=== PATIENT | female | born 1995 | race Caucasian/White ===

== ENCOUNTER → 2017-04-12 | Outpatient (CLI) | payer BC ==
[~2017-04-12] MED LIST: ZYRUNK
== END | disposition home or self-care (01) ==
LOC: C.PAPS 10:02
PROVIDERS: ATTEND Obstetrics & Gynecology
DX: Z01.419 Encounter for gynecological examination (general) (routine) without abnormal findings (principal)

== ENCOUNTER 2022-11-13 14:19 | Inpatient (IN) ==
--- NOTE | 2022-11-13 14:40 | History & Physical Report ---
Date of Service November 13, 2022 Assessment & Plan (1) Elevated BP without diagnosis of hypertension: Plan: Will order preeclampsia labs serial blood pressures likely will need induction will await labs and further blood pressures (2) Preeclampsia complicating hypertension: Plan: Update her labs to come back and these are normal however her systolic range pressures have been in the 180 range there was 1 reading of 215 but this likely was due to inaccurate reading. Nifedipine 10 mg given initially blood pressure 20 minutes afterwards was still 181/95 the second dose of nifedipine 10 mg p.o. given orally With meeting criteria with blood pressure decision for induction was made we will start magnesium is meets criteria for severe with blood pressures cervix is assessed is 1 cm 50% cervical [place] then placed under sterile conditions using a speculum placed with 30 cc of sterile saline patient tolerated well magnesium will be started blood pressure control with nifedipine and Pitocin started all carefully reviewed with the patient History of Present Illness Primary Care Provider: Francis Prieto DO RAMA Calculator Estimated Delivery Date Method Current WG Current Estimate 11/21/22 LMP (Certain) 38w 6d LMP: 02/14/22 : 1 Full term: 0 Premature: 0 Total Number of Induced Abortions: 0 Total Number of Spontaneous Abortions: 0 Ectopics: 0 Multiple births: 0 Number of Living Children: 0 Patient sent from the office with elevated blood pressures and protein in the urine here for assessment No headache no visual disturbances no epigastric pain she actually feels fairly well Allergies Allergy/AdvReac Type Severity Reaction Status Date / Time peanut Allergy Mild Verified 11/13/22 13:35 tree nut Allergy Verified 11/13/22 13:35 No Known Drug Allergies Allergy Uncoded 11/13/22 13:35 Home Medications Medication Instructions Recorded Confirmed Type cetirizine 10 mg tablet PO 06/17/19 11/13/22 History prenat.vits,swapna,wmu-jobk-jawek 1 tab PO DAILY 04/04/22 11/13/22 History Patient History Medical History (Updated 11/13/22 @ 15:49 by Chema Baldwin MD, FACOG) Eczema History of chicken pox HPV test positive Seasonal allergies Surgical History H/O oral surgery Status post colposcopy Family History Mother Hypertension Denies family history of Ovarian cancer Breast cancer Colorectal cancer Social History (Updated 04/04/22 @ 13:05 by Joan Weaver) Smoking Status: Never smoker Hx Alcohol Use: No Hx Substance Use: No Preferred Language: Mongolian Communication Ability: Effective Branch General Manager Required: No Beliefs That Will Affect Care: None marital status: marital status details: Rashi Aldridge (29) [phone] Current Living Situation: Spouse Current Living Situation Comment: lives with spouse, dogs current occupational status: employed current occupation: [employer] for [employer] Other Information That Helps Us Care for You: No Feels Safe at Home: Yes Safety Concerns: Feels Safe At This Time Results & Data ([facility]) Vital Signs (Past 12 Hours) Vital Signs Pulse BP 11/13/22 14:37 71 161/95 H Coding Level of Care Code None Diagnoses Elevated BP without diagnosis of hypertension R03.0 Preeclampsia complicating hypertension O11.9
[2022-11-13 15:13] LABS: Basophils # (auto) 0.08 K/uL (0-0.2); Basophils % (auto) 0.8 %; Eosinophils # (auto) 0.25 K/uL (0-0.50); Eosinophils % (auto) 2.6 %; Hematocrit (blood only) 31.4 % (37.0-47.0); Hemoglobin 10.3 g/dl (12.0-16.0); Immature Granulocytes # (auto) 0.03 K/uL (0.01-0.20); Immature Granulocytes % (auto) 0.3 %; Lymphocytes # (auto) 3.58 K/uL (1.2-3.4); Lymphocytes % (auto) 37.9 %; Mean Corpuscular Hemoglobin 28.2 pg (25.0-34.0); Mean Corpuscular Hgb Conc 32.8 g/dL (32.0-36.0); Mean Platelet Volume 11.8 fL (9.4-12.4); Monocytes # (auto) 0.57 K/uL (0.11-0.59); Neutrophils # (auto) 4.93 K/uL (1.40-6.50); Neutrophils % (auto) 52.4 %; Platelet Count 247 K/uL (130-400); RDW Coefficient of Variation 14.7 % (11.5-14.5); RDW Standard Deviation 46.1 fL (36.4-46.3); Red Blood Count 3.65 M/uL (4.20-5.40); White Blood Count 9.44 K/ul (4.8-10.8)
[2022-11-13] MEDS ORDERED: LIDOCAINE 1% LOCAL 20 ML VIAL INFIL PRN (15:16)
[2022-11-13] MEDS ORDERED: OXYTOCIN 30 UNITS/500 ML BAG IV PRN ×2 (15:16→16:03)
[2022-11-13] MEDS ORDERED: NIFEdipine 10 MG CAP PO STA ×5 (15:18→19:37)
[2022-11-13] MEDS ORDERED: NIFEdipine 10 MG CAP ONE (15:19)
[2022-11-13] MEDS: LACTATED RINGER'S 1,000 ML IV PRN (15:24)
[2022-11-13 15:28] LABS: Albumin Level 3.2 gm/dl (3.4-5.0); Bilirubin,Total 0.3 mg/dl (0.2-1.0)
[2022-11-13 15:34] LABS: Creatinine Clr Calc Pharmacy 134.5 ml/min; Est GFR (African American) 146.2 ml/min; Est GFR (Non-African American) 126.2 ml/min; Total Protein 6.4 gm/dl (6.0-8.3)
[2022-11-13 15:39] LABS: Total Protein Urine Random 130.5 mg/dl (0-11.9)
[2022-11-13 15:45] LABS: Creatinine Urine Random 107.3 mg/dl; Protein Creatinine Ratio Urine 1.2 (0-0.2)
[2022-11-13] MEDS ORDERED: MAGNESIUM SULFATE 40GM / WTR 1,000 ML BAG IV ONE (15:57)
[2022-11-13] MEDS ORDERED: MAG SULFATE 4GM BOLUS FROM BAG IV ONE (16:00)
[2022-11-13] MEDS: MAGNESIUM SULFATE / WTR 40 GM/1,000 ML BAG IV SCH (16:02)
[2022-11-13] MEDS ORDERED: PENICILLIN G POTASSIUM 6 MU in DEXTROSE 5% 250 ML IV STA (16:03)
[2022-11-13] MEDS ORDERED: ONDANSETRON INJ 2 MG/ML 2 ML VIAL IV PRN (18:19)
[2022-11-13] MEDS ORDERED: ACETAMINOPHEN 650 MG SUPP PR PRN (18:33)
[2022-11-13] MEDS: CALCIUM CARBONATE 500 MG CHEWABLE TAB PO PRN (19:02)
--- NOTE | 2022-11-13 19:38 | Labor Progress Brief Note ---
Date of Service November 13, 2022 Still struggling to control blood pressure have given nifedipine and doses of 10 then 10 and 20 and will repeat with 10 diastolics are reasonable but systolics in the 170s she had a headache but this seems to be improving monitoring closely Assessment & Plan Admission and Anticipated Discharge Date Admission Date: November 13, 2022 Results & Data ([facility]) Vital Signs (Past 12 Hours) Vital Signs Temp Pulse Resp BP Pulse Ox 11/13/22 18:00 20 11/13/22 17:00 22 11/13/22 16:00 22 11/13/22 15:30 97.5 F L 11/13/22 15:06 22 11/13/22 19:35 96 H 176/89 H 11/13/22 19:34 92 H 98 11/13/22 19:30 88 177/88 H 11/13/22 19:29 91 H 99 11/13/22 19:24 93 H 98 11/13/22 19:20 88 175/85 H 11/13/22 19:19 87 98 11/13/22 19:14 96 H 99 11/13/22 19:10 85 182/92 H 11/13/22 19:09 90 98 11/13/22 19:00 18 11/13/22 19:00 98.6 F 18 11/13/22 19:04 100 H 99 11/13/22 19:00 81 20 178/100 H 11/13/22 18:59 89 99 11/13/22 18:54 85 99 11/13/22 18:45 18 11/13/22 18:45 18 11/13/22 18:50 81 180/97 H 11/13/22 18:15 18 11/13/22 18:15 18 11/13/22 17:15 20 11/13/22 17:15 20 11/13/22 17:45 18 11/13/22 17:45 18 11/13/22 18:49 83 99 11/13/22 18:44 84 100 11/13/22 18:40 83 176/98 H 11/13/22 18:39 86 99 11/13/22 18:37 84 171/106 H 11/13/22 18:34 90 100 11/13/22 18:29 95 H 100 11/13/22 18:24 91 H 100 11/13/22 18:23 85 167/96 H 11/13/22 18:19 87 99 11/13/22 18:14 95 H 98 11/13/22 18:09 116 H 97 11/13/22 18:04 94 H 99 11/13/22 17:59 85 99 11/13/22 17:54 83 99 11/13/22 17:52 83 171/92 H 11/13/22 17:49 83 99 11/13/22 17:44 88 100 11/13/22 17:39 89 99 11/13/22 17:38 82 174/91 H 11/13/22 17:34 93 H 99 11/13/22 17:29 87 161/95 H 99 11/13/22 17:24 113 H 98 11/13/22 17:23 106 H 173/104 H 11/13/22 17:19 96 H 99 11/13/22 17:18 100 H 171/90 H 11/13/22 16:52 98 H 98 11/13/22 16:47 90 97 11/13/22 16:42 91 H 98 11/13/22 16:37 97 H 97 11/13/22 16:36 97 H 155/94 H 11/13/22 16:32 101 H 97 11/13/22 16:27 98 H 97 11/13/22 16:26 97 H 153/93 H 11/13/22 16:22 99 H 97 11/13/22 16:20 109 H 143/82 H 11/13/22 16:17 111 H 98 11/13/22 16:15 92 H 162/83 H 11/13/22 16:14 96 H 175/92 H 11/13/22 16:12 94 H 97 11/13/22 16:07 122 H 98 11/13/22 16:04 86 161/95 H 11/13/22 15:59 90 159/97 H 11/13/22 15:53 77 167/94 H 11/13/22 15:43 72 181/95 H 11/13/22 15:33 71 187/93 H 11/13/22 15:23 76 185/99 H 11/13/22 15:11 78 182/103 H 11/13/22 15:10 83 215/114 H 11/13/22 14:47 90 181/108 H 11/13/22 14:37 71 161/95 H Coding Level of Care Code None
[2022-11-13] MEDS ORDERED: LABETALOL HCL IV 5 MG/ML 20ML IV STA ×3 (21:23→23:33)
[2022-11-13] MEDS ORDERED: LABETALOL HCL IV 5 MG/ML 20ML IV ONE (21:25)
[2022-11-13] MEDS: PENICILLIN G POTASSIUM 3 MU in DEXTROSE 5% 100 ML IV PRN (23:14)
[2022-11-14] MEDS: CALCIUM CARBONATE 500 MG CHEWABLE TAB PO PRN (02:02)
[2022-11-14] MEDS: PENICILLIN G POTASSIUM 3 MU in DEXTROSE 5% 100 ML IV PRN ×3 (03:01→10:53)
[2022-11-14] MEDS: LACTATED RINGER'S 1,000 ML IV PRN ×3 (05:00→14:01)
--- NOTE | 2022-11-14 07:06 | Labor Progress Brief Note ---
Date of Service November 14, 2022 Still struggling to obtain ideal blood pressure ranges despite nifedipine and labetalol I do think some of the nifedipine was not actually ingested as she had emesis at those times better response to labetalol but still watching carefully she has no significant headache Her contraction pattern is not adequate at 20 milliunits Pitocin's will increase to 32 cervical [place] is pulled out she is 4 cm I offered her rupture of membranes she is debating that at this time and she is considering epidural as well she will let me know if she is amenable to her artificial rupture of membranes heart rate category 1 Assessment & Plan Admission and Anticipated Discharge Date Admission Date: November 13, 2022 Results & Data ([facility]) Vital Signs (Past 12 Hours) Vital Signs Temp Pulse Resp BP Pulse Ox 11/14/22 03:00 16 11/14/22 06:59 84 98 11/14/22 06:56 78 165/95 H 11/14/22 06:54 87 98 11/14/22 06:49 90 98 11/14/22 06:46 83 162/92 H 11/14/22 06:44 86 98 11/14/22 06:39 92 H 98 11/14/22 06:37 91 H 169/99 H 11/14/22 06:34 76 98 11/14/22 06:29 74 98 11/14/22 06:26 75 159/91 H 11/14/22 06:24 79 178/90 H 98 11/14/22 06:19 83 98 11/14/22 06:14 74 98 11/14/22 06:09 81 98 11/14/22 06:08 78 170/93 H 11/14/22 06:00 18 11/14/22 06:00 18 11/14/22 06:04 87 97 11/14/22 05:59 90 98 11/14/22 05:54 83 98 11/14/22 05:53 82 145/82 H 11/14/22 05:49 74 98 11/14/22 05:44 73 98 11/14/22 05:39 75 98 11/14/22 05:37 75 148/84 H 11/14/22 05:34 73 98 11/14/22 05:29 75 98 11/14/22 05:28 76 144/84 H 11/14/22 05:24 74 98 11/14/22 05:19 73 98 11/14/22 05:17 76 148/77 H 11/14/22 05:14 75 98 11/14/22 05:09 78 98 11/14/22 05:07 83 155/81 H 11/14/22 05:04 78 98 11/14/22 05:00 16 11/14/22 05:00 16 11/14/22 04:59 73 98 11/14/22 04:58 80 152/83 H 11/14/22 04:54 82 98 11/14/22 04:49 74 98 11/14/22 04:48 77 144/78 H 11/14/22 04:44 74 98 11/14/22 04:39 75 98 11/14/22 04:38 76 142/78 H 11/14/22 04:34 77 98 11/14/22 04:29 73 98 11/14/22 04:27 76 144/79 H 11/14/22 04:24 73 98 11/14/22 04:19 76 98 11/14/22 04:17 79 153/84 H 11/14/22 04:14 80 99 11/14/22 04:00 16 11/14/22 04:00 97.7 F 16 11/14/22 04:09 86 98 11/14/22 04:07 85 155/90 H 11/14/22 04:04 91 H 99 11/14/22 03:59 78 98 11/14/22 03:57 78 145/85 H 11/14/22 03:54 84 98 11/14/22 03:49 91 H 98 11/14/22 03:47 84 152/86 H 11/14/22 03:44 82 98 11/14/22 03:39 82 98 11/14/22 03:37 83 144/77 H 11/14/22 03:34 82 98 11/14/22 03:29 80 98 11/14/22 03:27 80 151/78 H 11/14/22 03:24 79 98 11/14/22 03:19 82 98 11/14/22 03:18 82 147/81 H 11/14/22 03:14 82 98 11/14/22 03:09 77 97 11/14/22 03:07 82 137/72 11/14/22 03:04 83 98 11/14/22 02:59 88 97 11/14/22 02:57 80 153/89 H 11/14/22 02:54 85 98 11/14/22 02:49 75 98 11/14/22 02:47 81 150/83 H 11/14/22 02:44 75 97 11/14/22 02:39 89 98 11/14/22 02:37 77 147/76 H 11/14/22 02:34 79 97 11/14/22 02:29 77 97 11/14/22 02:27 76 143/78 H 11/14/22 02:24 78 98 11/14/22 02:19 79 98 11/14/22 02:18 76 148/80 H 11/14/22 02:14 83 98 11/14/22 02:09 81 98 11/14/22 02:07 77 142/81 H 11/14/22 02:00 18 11/14/22 02:00 18 11/14/22 02:04 84 98 11/14/22 01:59 81 98 11/14/22 01:57 82 154/86 H 11/14/22 01:54 76 98 11/14/22 01:49 84 98 11/14/22 01:48 75 151/83 H 11/14/22 01:44 78 98 11/14/22 01:39 77 98 11/14/22 01:37 75 149/82 H 11/14/22 01:34 82 98 11/14/22 01:29 76 98 11/14/22 01:28 77 153/83 H 11/14/22 01:24 76 98 11/14/22 01:19 75 98 11/14/22 01:17 74 156/82 H 11/14/22 01:14 77 99 11/14/22 01:09 81 98 11/14/22 01:00 18 11/14/22 01:00 18 11/14/22 01:08 79 148/83 H 11/14/22 01:04 83 98 11/14/22 00:59 82 98 11/14/22 00:54 81 02 00:54 71 156/97 H 98 11/14/22 00:49 71 11/14/22 00:49 73 150/97 H 98 11/14/22 00:44 71 11/14/22 00:44 73 150/96 H 98 11/14/22 00:40 76 166/90 H 11/14/22 00:39 70 98 11/14/22 00:34 72 11/14/22 00:34 70 160/97 H 98 11/14/22 00:29 73 11/14/22 00:29 73 150/93 H 98 11/14/22 00:25 76 162/90 H 11/14/22 00:24 79 98 11/14/22 00:20 74 163/94 H 11/14/22 00:19 75 97 11/14/22 00:14 69 11/14/22 00:14 72 147/96 H 98 11/14/22 00:09 76 159/102 H 98 11/14/22 00:04 82 154/101 H 98 11/14/22 00:00 18 11/14/22 00:00 18 11/13/22 23:59 80 11/13/22 23:59 82 158/93 H 98 11/13/22 23:54 88 11/13/22 23:54 80 159/86 H 96 11/13/22 23:49 75 11/13/22 23:49 82 158/89 H 98 11/13/22 23:45 80 173/95 H 11/13/22 23:44 75 98 11/13/22 23:41 76 164/95 H 11/13/22 23:39 72 97 11/13/22 23:35 70 181/98 H 11/13/22 23:34 77 97 11/13/22 23:31 71 169/100 H 11/13/22 23:29 72 97 11/13/22 23:25 73 159/98 H 11/13/22 23:24 74 98 11/13/22 23:19 71 11/13/22 23:19 78 160/97 H 98 11/13/22 23:15 82 165/97 H 11/13/22 23:14 72 98 11/13/22 23:09 74 11/13/22 23:09 78 158/105 H 97 11/13/22 23:00 18 11/13/22 23:00 97.9 F 18 11/13/22 23:04 75 151/102 H 97 11/13/22 22:59 65 149/101 H 97 11/13/22 22:54 72 147/100 H 97 11/13/22 22:49 67 11/13/22 22:49 71 146/102 H 96 11/13/22 22:44 78 11/13/22 22:44 72 157/99 H 96 11/13/22 22:42 75 161/104 H 11/13/22 22:39 76 97 11/13/22 22:34 74 97 11/13/22 22:33 71 166/105 H 11/13/22 22:29 74 98 11/13/22 22:24 68 164/93 H 98 11/13/22 22:19 78 97 11/13/22 22:14 73 98 11/13/22 22:09 82 98 11/13/22 22:08 69 155/98 H 11/13/22 22:00 18 11/13/22 22:00 18 11/13/22 22:04 76 98 11/13/22 22:03 71 158/98 H 11/13/22 21:59 73 97 11/13/22 21:58 69 162/99 H 11/13/22 21:54 77 98 11/13/22 21:53 75 157/96 H 11/13/22 21:49 76 159/95 H 98 11/13/22 21:44 82 162/93 H 98 11/13/22 21:39 83 144/111 H 95 11/13/22 21:34 83 98 11/13/22 21:33 77 147/91 H 11/13/22 21:30 85 173/101 H 11/13/22 21:29 89 99 11/13/22 21:24 94 H 99 11/13/22 21:20 81 184/97 H 11/13/22 21:19 87 98 11/13/22 21:14 96 H 98 11/13/22 21:10 95 H 163/97 H 11/13/22 21:09 100 H 98 11/13/22 21:04 127 H 96 11/13/22 21:00 96 H 169/99 H 11/13/22 20:59 102 H 98 11/13/22 20:54 93 H 98 11/13/22 20:50 82 156/89 H 11/13/22 20:49 88 97 11/13/22 20:44 87 98 11/13/22 20:40 85 168/91 H 11/13/22 20:39 89 98 11/13/22 20:34 87 98 11/13/22 20:31 85 166/89 H 11/13/22 20:29 89 98 11/13/22 20:24 97 H 98 11/13/22 20:20 86 155/91 H 11/13/22 20:19 83 98 11/13/22 20:14 88 97 11/13/22 20:10 93 H 163/90 H 11/13/22 20:09 92 H 98 11/13/22 20:04 91 H 98 11/13/22 20:00 92 H 18 160/90 H 11/13/22 19:59 95 H 98 11/13/22 19:54 101 H 98 11/13/22 19:50 103 H 171/88 H 11/13/22 19:49 109 H 99 11/13/22 19:44 106 H 97 11/13/22 19:41 130 H 175/118 H 11/13/22 19:39 107 H 98 11/13/22 19:35 96 H 176/89 H 11/13/22 19:34 92 H 98 11/13/22 19:30 88 177/88 H 11/13/22 19:29 91 H 99 11/13/22 19:24 93 H 98 11/13/22 19:20 88 175/85 H 11/13/22 19:19 87 98 11/13/22 19:14 96 H 99 11/13/22 19:10 85 182/92 H 11/13/22 19:09 90 98 Coding Level of Care Code None
[2022-11-14] MEDS ORDERED: ePHEDrine sulfate 50 MG/ML AMP ONE (07:50)
[2022-11-14] MEDS ORDERED: fentaNYL citrate 100 MCG/2 ML VIAL ONE (07:50)
[2022-11-14] MEDS ORDERED: fentaNYL 2MCG/ML ROPIVACAINE 1.25MG/ML 100 ML BAG EPI ONE (07:51)
[2022-11-14] MEDS ORDERED: LIDOCAINE 2%/EPINEPHRINE 1:200,000 20 ML SDV ONE (07:51)
[2022-11-14] MEDS ORDERED: BUPIVACAINE 0.25% 30 ML VIAL ONE (07:51)
[2022-11-14] MEDS ORDERED: SODIUM CHLORIDE 0.9% INJ 10 ML VIAL ONE (07:51)
[2022-11-14 08:00] LABS: Hematocrit (blood only) 33.3 % (37.0-47.0); Hemoglobin 11.1 g/dl (12.0-16.0); Mean Corpuscular Hemoglobin 28.4 pg (25.0-34.0); Mean Corpuscular Hgb Conc 33.3 g/dL (32.0-36.0); Mean Corpuscular Volume 85.2 fL (80.0-100.0); Mean Platelet Volume 11.6 fL (9.4-12.4); Platelet Count 269 K/uL (130-400); RDW Coefficient of Variation 14.6 % (11.5-14.5); RDW Standard Deviation 44.5 fL (36.4-46.3); Red Blood Count 3.91 M/uL (4.20-5.40); White Blood Count 13.88 K/ul (4.8-10.8)
[2022-11-14 08:10] LABS: Albumin Level 3.3 gm/dl (3.4-5.0); Bilirubin,Total 0.3 mg/dl (0.2-1.0); Calcium 7.5 mg/dl (8.5-10.1); Creatinine Clr Calc Pharmacy 127.7 ml/min; Est GFR (African American) 143.8 ml/min; Globulin 3.3 gm/dl (2.5-4.0); Potassium 4.1 mmol/L (3.5-5.1); Total Protein 6.6 gm/dl (6.0-8.3)
[2022-11-14] MEDS ORDERED: LABETALOL HCL IV 5 MG/ML 20ML IV STA ×3 (08:10→14:14)
[2022-11-14] MEDS: MAGNESIUM SULFATE / WTR 40 GM/1,000 ML BAG IV SCH (08:32)
--- NOTE | 2022-11-14 09:32 | Anesthesiology Consultation ---
Date of Service November 14, 2022 Assessment & Plan Chart Review Chart Review: Acceptable Risk for Labor Epidural Consults Requested none History Height/Weight Height: 5 ft Weight: 76.657 kg Allergies Allergy/AdvReac Type Severity Reaction Status Date / Time peanut Allergy Mild Verified 11/13/22 13:35 tree nut Allergy Verified 11/13/22 13:35 No Known Drug Allergies Allergy Uncoded 11/13/22 13:35 Medications Home Medications Medication Instructions Recorded Confirmed Last Taken cetirizine 10 mg tablet PO 06/17/19 11/13/22 11/13/22 prenat.vits,swapna,lyw-obij-svvqs 1 tab PO DAILY 04/04/22 11/13/22 11/12/22 Active Medications Generic Name Dose Route Start Last Admin Trade Name Freq PRN Reason Stop Dose Admin Acetaminophen 650 mg 11/13/22 18:33 11/14/22 01:01 Acetaminophen 650 Mg Supp RI 12/13/22 18:32 650 mg Q4H PRN Administration Headache Calcium Carbonate 500 mg 11/13/22 18:19 11/14/22 02:02 Calcium Carbonate 500 Mg Chewable Tab PO 12/13/22 18:18 500 mg Q4 PRN Administration Indigestion Lactated Ringer's 1,000 mls @ 125 mls/hr 11/13/22 15:16 11/14/22 09:31 Lr IV 11/15/22 15:15 75 mls/hr .Q8H PRN Infusion L&D Protocol Protocol Magnesium Sulfate 40 gm in 1,000 mls @ 50 mls/hr 11/13/22 16:00 11/14/22 08:32 Magnesium Sulfate / Wtr IV 12/13/22 15:59 50 mls/hr .Q20H LAAN Administration Penicillin G Potassium 3 mu/ 106 mls @ 100 mls/hr 11/13/22 19:03 11/14/22 07:18 Dextrose IV 11/23/22 19:02 100 mls/hr Q4H PRN Administration GBS(+) Until Delivery Oxytocin 30 units in 500 mls @ 28 mls/hr 11/13/22 16:03 11/14/22 09:30 Pitocin IV 11/15/22 16:02 1.8 units/hr .[id number] PRN 30 mls/hr Labor Induction/Augmentation Titration Protocol 1.68 UNITS/HR Ondansetron HCl 4 mg 11/13/22 18:19 11/13/22 19:46 Ondansetron Inj 2 Mg/Ml 2 Ml Vial IV 12/13/22 18:18 4 mg Q6H PRN Administration Nausea And Vomiting Past Medical History Medical History (Updated 11/13/22 @ 15:49 by Chema Baldwin MD, FACOG) Eczema History of chicken pox HPV test positive Seasonal allergies Past Family History Family History Mother Hypertension Denies family history of Ovarian cancer Breast cancer Colorectal cancer Past Surgical History Surgical History H/O oral surgery Status post colposcopy Social History Smoking Status: Never smoker Hx Alcohol Use: No Hx Substance Use: No substance use type: does not use Physical Exam Vital Signs Last Vital Signs Temp 36.5 C 11/14/22 07:00 Pulse 80 11/14/22 09:30 Resp 18 11/14/22 08:30 BP 136/82 11/14/22 09:30 Pulse Ox 99 11/14/22 09:29 Testing Laboratory Results 11/14/22 07:34 11/14/22 07:34
[2022-11-14] MEDS ORDERED: ePHEDrine sulfate 50 MG/ML AMP IV PRN (09:34)
[2022-11-14] MEDS ORDERED: NALOXONE HCL 0.4 MG/1 ML VIAL/CARP IV PRN (09:34)
[2022-11-14] MEDS ORDERED: NALBUPHINE HCL INJ 10 MG/ML AMP IV PRN (09:34)
[2022-11-14] MEDS ORDERED: NALOXONE HCL 1 MG in SODIUM CHLORIDE 0.9% 1000ML 1,000 ML IV PRN (09:34)
[2022-11-14] MEDS ORDERED: diphenhydrAMINE 50 MG/ML VIAL IV PRN (09:34)
[2022-11-14] MEDS ORDERED: fentaNYL 2MCG/ML ROPIVACAINE 1.25MG/ML 100 ML BAG EPI PRN (09:34)
--- NOTE | 2022-11-14 12:00 | Labor Progress Brief Note ---
Date of Service November 14, 2022 Subjective Comfortable after epidural. FHT Cat 1 [place] Q 4 SVE 6/100/-1, bulging membranes AROM clear fluid. BPs better after epidural. Continue labor. Assessment & Plan Admission and Anticipated Discharge Date Admission Date: November 13, 2022 Results & Data ([facility]) Vital Signs (Past 12 Hours) Vital Signs Temp Pulse Resp BP Pulse Ox 11/14/22 07:00 36.5 C 18 11/14/22 07:00 18 11/14/22 03:00 16 11/14/22 11:59 75 11/14/22 11:54 83 98 11/14/22 11:53 85 143/86 H 11/14/22 11:49 72 98 11/14/22 11:44 66 98 11/14/22 11:43 68 155/76 H 11/14/22 11:39 70 98 11/14/22 11:34 69 98 11/14/22 11:30 16 11/14/22 11:30 16 11/14/22 11:33 67 146/82 H 11/14/22 11:29 70 97 11/14/22 11:24 69 98 11/14/22 11:23 67 140/83 11/14/22 11:19 69 98 11/14/22 11:14 67 97 11/14/22 11:13 72 145/78 H 11/14/22 11:09 67 97 11/14/22 11:04 69 97 11/14/22 11:03 65 134/78 11/14/22 11:00 16 11/14/22 11:00 16 11/14/22 10:59 69 97 11/14/22 10:54 72 97 11/14/22 10:52 78 135/82 11/14/22 10:49 70 98 11/14/22 10:44 69 98 11/14/22 10:42 70 134/82 11/14/22 10:39 67 97 11/14/22 10:34 69 97 11/14/22 10:33 69 137/83 11/14/22 10:30 16 11/14/22 10:30 16 11/14/22 10:29 75 98 11/14/22 10:24 75 98 11/14/22 10:22 74 135/80 11/14/22 10:19 71 98 11/14/22 10:17 68 125/78 11/14/22 10:00 16 11/14/22 10:00 16 11/14/22 10:14 72 98 11/14/22 10:12 74 125/76 11/14/22 10:09 73 97 11/14/22 10:07 76 127/77 11/14/22 10:04 75 98 11/14/22 10:02 80 123/79 11/14/22 09:59 83 97 11/14/22 09:58 85 127/82 11/14/22 09:54 83 96 11/14/22 09:52 87 129/79 11/14/22 09:49 82 96 11/14/22 09:47 75 124/74 11/14/22 09:44 80 96 11/14/22 09:42 83 122/72 11/14/22 09:40 80 127/76 11/14/22 09:39 79 97 11/14/22 09:38 85 134/81 11/14/22 09:36 87 132/83 11/14/22 09:34 90 11/14/22 09:34 88 141/89 H 98 11/14/22 09:32 87 139/82 11/14/22 09:30 80 16 136/82 11/14/22 09:29 86 99 11/14/22 09:26 80 142/80 H 11/14/22 09:24 80 148/80 H 99 11/14/22 09:20 80 163/97 H 11/14/22 09:19 78 97 11/14/22 09:18 83 157/89 H 11/14/22 09:16 82 158/95 H 11/14/22 09:14 85 98 11/14/22 09:09 88 98 11/14/22 09:06 86 172/102 H 11/14/22 09:04 76 98 11/14/22 08:59 75 98 11/14/22 08:56 75 165/98 H 11/14/22 08:54 75 98 11/14/22 08:49 82 98 11/14/22 08:46 75 162/92 H 11/14/22 08:44 73 98 11/14/22 08:39 80 97 11/14/22 08:30 18 11/14/22 08:30 18 11/14/22 08:36 74 167/90 H 11/14/22 08:34 76 97 11/14/22 08:29 78 97 11/14/22 08:27 79 154/84 H 11/14/22 08:24 86 98 11/14/22 08:19 90 99 11/14/22 08:17 80 195/103 H 11/14/22 08:14 84 98 11/14/22 08:09 83 98 11/14/22 08:06 80 176/98 H 11/14/22 08:00 18 11/14/22 08:00 18 11/14/22 08:04 87 98 11/14/22 07:59 85 98 11/14/22 07:56 75 169/92 H 11/14/22 07:54 82 98 11/14/22 07:49 83 98 11/14/22 07:46 83 186/100 H 11/14/22 07:44 88 98 11/14/22 07:39 83 98 11/14/22 07:34 76 98 11/14/22 07:30 18 11/14/22 07:30 18 11/14/22 07:29 82 98 11/14/22 07:26 76 162/96 H 11/14/22 07:24 77 98 11/14/22 07:19 84 98 11/14/22 07:16 86 160/94 H 11/14/22 07:14 88 97 11/14/22 07:12 80 161/97 H 11/14/22 07:09 87 97 11/14/22 07:06 88 171/100 H 11/14/22 07:04 83 98 11/14/22 06:59 84 98 11/14/22 06:56 78 165/95 H 11/14/22 06:54 87 98 11/14/22 06:49 90 98 11/14/22 06:46 83 162/92 H 11/14/22 06:44 86 98 11/14/22 06:39 92 H 98 11/14/22 06:37 91 H 169/99 H 11/14/22 06:34 76 98 11/14/22 06:29 74 98 11/14/22 06:26 75 159/91 H 11/14/22 06:24 79 178/90 H 98 11/14/22 06:19 83 98 02/01/23 06:14 74 98 11/14/22 06:09 81 98 11/14/22 06:08 78 170/93 H 11/14/22 06:00 18 11/14/22 06:00 18 11/14/22 06:04 87 97 11/14/22 05:59 90 98 11/14/22 05:54 83 98 11/14/22 05:53 82 145/82 H 11/14/22 05:49 74 98 11/14/22 05:44 73 98 11/14/22 05:39 75 98 11/14/22 05:37 75 148/84 H 11/14/22 05:34 73 98 11/14/22 05:29 75 98 11/14/22 05:28 76 144/84 H 11/14/22 05:24 74 98 11/14/22 05:19 73 98 11/14/22 05:17 76 148/77 H 11/14/22 05:14 75 98 11/14/22 05:09 78 98 11/14/22 05:07 83 155/81 H 11/14/22 05:04 78 98 11/14/22 05:00 16 11/14/22 05:00 16 11/14/22 04:59 73 98 11/14/22 04:58 80 152/83 H 11/14/22 04:54 82 98 11/14/22 04:49 74 98 11/14/22 04:48 77 144/78 H 11/14/22 04:44 74 98 11/14/22 04:39 75 98 11/14/22 04:38 76 142/78 H 11/14/22 04:34 77 98 11/14/22 04:29 73 98 11/14/22 04:27 76 144/79 H 11/14/22 04:24 73 98 11/14/22 04:19 76 98 11/14/22 04:17 79 153/84 H 11/14/22 04:14 80 99 11/14/22 04:00 16 11/14/22 04:00 36.5 C 16 11/14/22 04:09 86 98 11/14/22 04:07 85 155/90 H 11/14/22 04:04 91 H 99 11/14/22 03:59 78 98 11/14/22 03:57 78 145/85 H 11/14/22 03:54 84 98 11/14/22 03:49 91 H 98 11/14/22 03:47 84 152/86 H 11/14/22 03:44 82 98 11/14/22 03:39 82 98 11/14/22 03:37 83 144/77 H 11/14/22 03:34 82 98 11/14/22 03:29 80 98 11/14/22 03:27 80 151/78 H 11/14/22 03:24 79 98 11/14/22 03:19 82 98 11/14/22 03:18 82 147/81 H 11/14/22 03:14 82 98 11/14/22 03:09 77 97 11/14/22 03:07 82 137/72 11/14/22 03:04 83 98 11/14/22 02:59 88 97 11/14/22 02:57 80 153/89 H 11/14/22 02:54 85 98 11/14/22 02:49 75 98 11/14/22 02:47 81 150/83 H 11/14/22 02:44 75 97 11/14/22 02:39 89 98 11/14/22 02:37 77 147/76 H 11/14/22 02:34 79 97 11/14/22 02:29 77 97 11/14/22 02:27 76 143/78 H 11/14/22 02:24 78 98 11/14/22 02:19 79 98 11/14/22 02:18 76 148/80 H 11/14/22 02:14 83 98 11/14/22 02:09 81 98 11/14/22 02:07 77 142/81 H 11/14/22 02:00 18 11/14/22 02:00 18 11/14/22 02:04 84 98 11/14/22 01:59 81 98 11/14/22 01:57 82 154/86 H 11/14/22 01:54 76 98 11/14/22 01:49 84 98 11/14/22 01:48 75 151/83 H 11/14/22 01:44 78 98 11/14/22 01:39 77 98 11/14/22 01:37 75 149/82 H 11/14/22 01:34 82 98 11/14/22 01:29 76 98 11/14/22 01:28 77 153/83 H 11/14/22 01:24 76 98 11/14/22 01:19 75 98 11/14/22 01:17 74 156/82 H 11/14/22 01:14 77 99 11/14/22 01:09 81 98 11/14/22 01:00 18 11/14/22 01:00 18 11/14/22 01:08 79 148/83 H 11/14/22 01:04 83 98 11/14/22 00:59 82 98 11/14/22 00:54 81 11/14/22 00:54 71 156/97 H 98 11/14/22 00:49 71 11/14/22 00:49 73 150/97 H 98 11/14/22 00:44 71 11/14/22 00:44 73 150/96 H 98 11/14/22 00:40 76 166/90 H 11/14/22 00:39 70 98 11/14/22 00:34 72 11/14/22 00:34 70 160/97 H 98 11/14/22 00:29 73 11/14/22 00:29 73 150/93 H 98 11/14/22 00:25 76 162/90 H 11/14/22 00:24 79 98 11/14/22 00:20 74 163/94 H 11/14/22 00:19 75 97 11/14/22 00:14 69 11/14/22 00:14 72 147/96 H 98 11/14/22 00:09 76 159/102 H 98 11/14/22 00:04 82 154/101 H 98 11/14/22 00:00 18 11/14/22 00:00 18 Coding Level of Care Code None
[2022-11-14 13:06] LABS: Hematocrit (blood only) 32.2 % (37.0-47.0); Hemoglobin 10.8 g/dl (12.0-16.0); Mean Corpuscular Hemoglobin 28.6 pg (25.0-34.0); Mean Corpuscular Hgb Conc 33.5 g/dL (32.0-36.0); Mean Corpuscular Volume 85.4 fL (80.0-100.0); Mean Platelet Volume 11.7 fL (9.4-12.4); Platelet Count 278 K/uL (130-400); RDW Coefficient of Variation 14.6 % (11.5-14.5); RDW Standard Deviation 45.1 fL (36.4-46.3); Red Blood Count 3.77 M/uL (4.20-5.40); White Blood Count 14.99 K/ul (4.8-10.8)
[2022-11-14 13:19] LABS: Albumin Level 3.1 gm/dl (3.4-5.0); Bilirubin,Total 0.4 mg/dl (0.2-1.0); Calcium 7.2 mg/dl (8.5-10.1); Magnesium Therapeutic L&D Only 6.9 mg/dL (4.0-8.0); Potassium 4.3 mmol/L (3.5-5.1)
[2022-11-14 13:25] LABS: BUN Creatinine Ratio 10.1 (10-20); Creatinine Clr Calc Pharmacy 111.1 ml/min; Est GFR (African American) 137.3 ml/min; Est GFR (Non-African American) 118.5 ml/min; Globulin 3.2 gm/dl (2.5-4.0); Total Protein 6.3 gm/dl (6.0-8.3)
[2022-11-14] MEDS ORDERED: CARBOPROST TROMETHAMINE 250 MCG/ML AMPUL ONE (13:38)
--- NOTE | 2022-11-14 13:59 | Delivery Summary ---
Vaginal Delivery Summary Date of Service November 14, 2022 Vaginal Delivery Summary and 1st Degree LAC Vaginal Delivery Summary: Pre-delivery diagnoses: 26yo 39 0/7, IOL for preeclampsia with severe features (BP), GBS+ Post-delivery diagnoses: same Procedure: spontaneous vaginal delivery, repair of 1st degree perineal laceration Surgeon: Camelia Zeng DO Complications: none Findings: Viable male . Apgars 8/9. Weight pending, please see nursery r ecords. Estimated blood loss: 300ml Description of delivery: The patient progressed to complete with epidural anesthesia. She then began to push. She spontaneously vaginally delivered a viable from the cephalic presentation. The head delivered in RAY position. The anterior shoulder delivered, followed by the posterior shoulder, followed by the body. No nuchal. The baby was placed on mother's abdomen and a spontaneous cry was heard. Delayed cord clamping was employed, and the cord was doubly clamped and cut. Cord blood was obtained. The placenta was delivered spontaneously intact with a 3-vessel cord. The uterus and vagina were swept of clots and debris. IV pitocin was given. One dose of hemabate was given to help the uterus became firm given her high pitocin dose and concurrent administration of magnesium, which it did firm immediately with uterine massage. The cervix, vagina, and perineum were inspected and a 1st degree laceration and a superficial right vaginal laceration were noted. The perineal laceration was injected with 1% lidocaine for local anesthetic after testing of the area produced pain. The 1st degree laceration was reapproximated with 3-0 Vicryl in running locked stitch. The right vaginal laceration was hemostatic and therefore not repaired. Excellent hemostasis was observed. Pal[place] catheter replaced. The mother and baby are recovering in stable and good condition in the room. Sponge, needle and instrument counts were correct x 2. Camelia Zeng DO [facility] Vaginal Delivery Charge Vaginal Delivery Codes: 22546 global code for the antepartum, delivery, and post- Delivery Type Details: and 1st Degree LAC
[2022-11-14] MEDS ORDERED: OXYTOCIN 30 UNITS/500 ML BAG IV PRN (14:45)
[2022-11-14] MEDS ORDERED: bisacodyL 10 MG SUPP PR PRN (14:45)
[2022-11-14] MEDS ORDERED: DIPHTHERIA/TETANUS/PERTUSSIS 0.5mL SYR/VIAL (Age 7+yrs) IM ONE (14:45)
[2022-11-14] MEDS ORDERED: HYDROCORTISONE ACETATE 25 MG SUPP PR PRN (14:45)
[2022-11-14] MEDS ORDERED: IBUPROFEN 600 MG TAB PO PRN (14:45)
[2022-11-14] MEDS ORDERED: oxyCODONE/ACETAMINOPHEN 5mg/325mg TAB PO PRN (14:45)
[2022-11-14] MEDS ORDERED: ACETAMINOPHEN 325 MG TAB PO PRN (14:45)
[2022-11-14] MEDS ORDERED: BENZOCAINE 20% AER SPR 82.5 GM CAN EXT PRN (14:45)
--- NOTE | 2022-11-14 16:46 | Anesthesia Procedure Note ---
Date of Service November 14, 2022 Anesthesia Post Epidural Note Vital Signs Vital Signs: Temp Pulse Resp BP Pulse Ox 36.5 C 83 16 172/97 H 98 11/14/22 16:00 11/14/22 16:45 11/14/22 16:00 11/14/22 16:43 11/14/22 16:45 Pain Intensity Abdomen: Pain Intensity: 0 Notes Mental Status: alert / awake / arousable Nausea / Vomiting: adequately controlled Pain: adequately controlled Airway Patency, RR, SpO2: stable & adequate BP & HR: stable & adequate Hydration State: stable & adequate Neuraxial Anesthesia: was administered and sensory block is resolving Anesthetic Complications: no major complications apparent and Pt Satisfied with anesthetic care Epidural: Removed without complications and With tip intact
[2022-11-14] MEDS ORDERED: LABETALOL HCL 100 MG TAB PO ONE (17:04)
[2022-11-14 18:28] LABS: Basophils # (auto) 0.05 K/uL (0-0.2); Basophils % (auto) 0.2 %; Eosinophils # (auto) 0.01 K/uL (0-0.50); Hematocrit (blood only) 32.9 % (37.0-47.0); Immature Granulocytes # (auto) 0.09 K/uL (0.01-0.20); Immature Granulocytes % (auto) 0.4 %; Lymphocytes # (auto) 2.41 K/uL (1.2-3.4); Lymphocytes % (auto) 11.9 %; Mean Corpuscular Hemoglobin 28.4 pg (25.0-34.0); Mean Corpuscular Hgb Conc 33.4 g/dL (32.0-36.0); Mean Corpuscular Volume 84.8 fL (80.0-100.0); Mean Platelet Volume 11.7 fL (9.4-12.4); Monocytes # (auto) 0.96 K/uL (0.11-0.59); Monocytes % (auto) 4.8 %; Neutrophils # (auto) 16.67 K/uL (1.40-6.50); Neutrophils % (auto) 82.7 %; Platelet Count 265 K/uL (130-400); RDW Coefficient of Variation 14.6 % (11.5-14.5); RDW Standard Deviation 44.7 fL (36.4-46.3); Red Blood Count 3.88 M/uL (4.20-5.40); White Blood Count 20.19 K/ul (4.8-10.8)
[2022-11-14 18:41] LABS: BUN Creatinine Ratio 9.5 (10-20); Bilirubin,Total 0.3 mg/dl (0.2-1.0); Calcium 6.8 mg/dl (8.5-10.1); Creatinine Clr Calc Pharmacy 121.7 ml/min; Est GFR (African American) 141.5 ml/min; Est GFR (Non-African American) 122.1 ml/min; Magnesium Therapeutic L&D Only 6.7 mg/dL (4.0-8.0); Potassium 3.5 mmol/L (3.5-5.1)
[2022-11-14] MEDS: LACTATED RINGER'S 1,000 ML IV SCH (19:18)
[2022-11-14] MEDS: DOCUSATE SODIUM 100 MG CAP PO SCH (22:04)
[2022-11-15 00:54] LABS: Basophils # (auto) 0.06 K/uL (0-0.2); Basophils % (auto) 0.3 %; Eosinophils # (auto) 0.02 K/uL (0-0.50); Eosinophils % (auto) 0.1 %; Hematocrit (blood only) 28.8 % (37.0-47.0); Hemoglobin 9.6 g/dl (12.0-16.0); Immature Granulocytes # (auto) 0.06 K/uL (0.01-0.20); Immature Granulocytes % (auto) 0.3 %; Lymphocytes % (auto) 14.2 %; Mean Corpuscular Hemoglobin 28.7 pg (25.0-34.0); Mean Corpuscular Hgb Conc 33.3 g/dL (32.0-36.0); Mean Corpuscular Volume 86.2 fL (80.0-100.0); Mean Platelet Volume 11.7 fL (9.4-12.4); Monocytes % (auto) 5.7 %; Neutrophils # (auto) 13.97 K/uL (1.40-6.50); Neutrophils % (auto) 79.4 %; Platelet Count 240 K/uL (130-400); RDW Coefficient of Variation 14.6 % (11.5-14.5); Red Blood Count 3.34 M/uL (4.20-5.40); White Blood Count 17.61 K/ul (4.8-10.8)
[2022-11-15 01:14] LABS: Albumin Level 2.8 gm/dl (3.4-5.0); BUN Creatinine Ratio 9.5 (10-20); Bilirubin,Total 0.3 mg/dl (0.2-1.0); Calcium 6.7 mg/dl (8.5-10.1); Creatinine Clr Calc Pharmacy 121.7 ml/min; Est GFR (African American) 141.5 ml/min; Est GFR (Non-African American) 122.1 ml/min; Globulin 2.9 gm/dl (2.5-4.0); Magnesium Therapeutic L&D Only 7.7 mg/dL (4.0-8.0); Potassium 3.9 mmol/L (3.5-5.1); Total Protein 5.7 gm/dl (6.0-8.3)
[2022-11-15] MEDS: LACTATED RINGER'S 1,000 ML IV SCH (02:04)
[2022-11-15] MEDS: MAGNESIUM SULFATE / WTR 40 GM/1,000 ML BAG IV SCH (04:14)
[2022-11-15] MEDS ORDERED: LABETALOL HCL 100 MG TAB PO ONE (04:32)
--- NOTE | 2022-11-15 06:29 | Obstetrical Progress Note ---
Date of Service <Carlene Montes - Last Filed: 11/15/22 07:48> November 15, 2022 Assessment & Plan <Carlene Montes DO - Last Filed: 11/15/22 07:48> (1) Preeclampsia complicating hypertension: - Plan to continue magnesium until 24 hours after delivery - Will continue to monitor blood pressures and treat with labetalol (2) Status post vaginal delivery: - plan for Palomino out, trial of OOB once Palomino is out this afternoon, advance diet as tolerated <Camelia Zeng, DO - Last Filed: 11/15/22 08:36> (1) Preeclampsia complicating hypertension: (2) Status post vaginal delivery: Subjective <Carlene Montes DO - Last Filed: 11/15/22 07:48> Lissa is a 26 y/o female who is now PPD # 1 following vaginal delivery at 39 weeks. Reports feeling well overall this morning. Mild abdominal cramping, pain well managed on analgesics. Palomino is still in place. Tolerating clear liquids overnight, did not some nausea. Some persistent lochia with some improvement this morning. Plans to breast feed. Denies headache ache, vision changes and abdominal pain. Review of Systems Denies fever, chills, sweats Denies shortness of breath, difficulty breathing, chest pain, palpitations, chest pressure. Denies breast pain. Denies dysuria. Denies headache or changes in vision. Physical Exam <Carlene Montes DO - Last Filed: 11/15/22 07:48> General: Alert, oriented. No acute distress. Cardiac: Regular rate and rhythm, no murmurs/rubs/gallops. Respiratory: Clear to auscultation bilaterally a/p, no wheezes/rales/rhonchi. No increased work of breathing. Symmetrical chest rise. No respiratory distress. Abdomen: Soft, nontender, nondistended. Bowel sounds present. Uterus: Uterine fundus firm, palpable 2 cm below umbilicus. Lower Extremities: No lower extremity edema or swelling. No deep calf pain. Morro an's negative bilaterally. Results & Data ([facility]) <Carlene MonteroIsabella Simon DO - Last Filed: 11/15/22 07:48> Vital Signs (Past 12 Hours) Vital Signs Temp Pulse Resp BP Pulse Ox O2 Del Method 11/15/22 06:08 18 11/15/22 05:08 16 11/15/22 04:00 18 11/15/22 03:00 36.9 C 18 11/15/22 03:00 18 11/15/22 02:08 18 11/15/22 01:00 16 11/15/22 00:00 16 11/14/22 23:00 36.7 C 18 11/14/22 23:00 18 11/14/22 22:03 18 11/14/22 21:03 18 11/14/22 20:00 18 11/14/22 19:00 18 11/14/22 19:00 Room Air 11/15/22 06:20 79 97 11/15/22 06:15 71 97 11/15/22 06:11 72 142/84 H 11/15/22 06:10 73 96 11/15/22 06:05 79 97 11/15/22 06:03 75 153/87 H 11/15/22 06:00 67 96 11/15/22 05:57 73 180/85 H 11/15/22 05:55 69 96 11/15/22 05:50 67 98 11/15/22 05:45 73 97 11/15/22 05:42 73 146/90 H 11/15/22 05:40 70 98 11/15/22 05:35 71 98 11/15/22 05:30 67 97 11/15/22 05:26 73 160/90 H 11/15/22 05:25 67 98 11/15/22 05:20 71 98 11/15/22 05:15 70 97 11/15/22 05:11 75 168/92 H 11/15/22 05:10 78 97 11/15/22 05:05 76 97 11/15/22 05:00 74 98 11/15/22 04:57 77 164/90 H 11/15/22 04:55 75 98 11/15/22 04:50 79 98 11/15/22 04:45 82 98 11/15/22 04:40 68 97 11/15/22 04:35 70 98 11/15/22 04:30 68 98 11/15/22 04:26 68 167/89 H 11/15/22 04:25 69 98 11/15/22 04:20 67 97 11/15/22 04:15 74 97 11/15/22 04:11 64 163/85 H 11/15/22 04:10 71 97 11/15/22 04:05 80 99 11/15/22 04:00 72 97 11/15/22 03:56 72 164/86 H 11/15/22 03:55 70 98 11/15/22 03:50 69 98 11/15/22 03:45 76 97 11/15/22 03:42 72 160/89 H 11/15/22 03:40 74 98 11/15/22 03:35 75 98 11/15/22 03:30 80 98 11/15/22 03:25 69 98 11/15/22 03:23 72 151/88 H 11/15/22 03:20 67 98 11/15/22 03:15 69 97 11/15/22 03:13 70 150/87 H 11/15/22 03:10 72 98 11/15/22 03:05 75 97 11/15/22 03:03 77 179/93 H 11/15/22 03:00 86 98 11/15/22 02:55 67 96 11/15/22 02:53 68 151/86 H 11/15/22 02:50 68 97 11/15/22 02:45 67 96 11/15/22 02:43 66 150/79 H 11/15/22 02:40 66 96 11/15/22 02:35 67 96 11/15/22 02:33 73 165/82 H 11/15/22 02:30 68 97 11/15/22 02:25 66 97 11/15/22 02:23 67 151/89 H 11/15/22 02:20 66 98 11/15/22 02:15 65 97 11/15/22 02:13 67 153/81 H 11/15/22 02:10 68 97 11/15/22 02:05 73 97 11/15/22 02:03 83 160/91 H 11/15/22 02:00 67 98 11/15/22 01:55 71 97 11/15/22 01:53 79 175/89 H 11/15/22 01:50 71 97 11/15/22 01:45 67 97 11/15/22 01:43 68 147/87 H 11/15/22 01:40 67 97 11/15/22 01:35 69 97 11/15/22 01:32 68 171/89 H 11/15/22 01:30 70 97 11/15/22 01:25 74 98 11/15/22 01:23 68 150/90 H 11/15/22 01:20 72 98 11/15/22 01:15 79 98 11/15/22 01:12 76 162/93 H 11/15/22 01:10 73 98 11/15/22 01:05 76 98 11/15/22 01:02 73 162/90 H 11/15/22 01:00 75 98 11/15/22 00:55 73 97 11/15/22 00:52 71 154/87 H 11/15/22 00:50 76 97 11/15/22 00:45 76 98 11/15/22 00:43 70 149/87 H 11/15/22 00:40 75 97 11/15/22 00:35 81 98 11/15/22 00:30 80 97 11/15/22 00:25 74 97 11/15/22 00:23 68 169/86 H 11/15/22 00:20 73 97 11/15/22 00:15 68 97 11/15/22 00:13 65 143/80 H 11/15/22 00:10 67 96 11/15/22 00:05 69 97 11/15/22 00:03 73 147/84 H 11/15/22 00:00 66 97 11/14/22 23:55 97 11/14/22 23:55 69 11/14/22 23:53 73 11/14/22 23:53 157/85 H 11/14/22 23:50 98 11/14/22 23:50 66 11/14/22 23:45 97 11/14/22 23:45 71 11/14/22 23:42 72 11/14/22 23:42 153/88 H 11/14/22 23:40 97 11/14/22 23:40 72 11/14/22 23:35 96 11/14/22 23:35 71 11/14/22 23:32 72 11/14/22 23:32 155/89 H 11/14/22 23:30 98 11/14/22 23:30 73 11/14/22 23:25 97 11/14/22 23:25 76 11/14/22 23:22 71 11/14/22 23:22 153/91 H 11/14/22 23:20 96 11/14/22 23:20 73 11/14/22 23:15 96 11/14/22 23:15 76 11/14/22 23:12 74 11/14/22 23:12 156/89 H 11/14/22 23:10 98 11/14/22 23:10 86 11/14/22 23:05 98 11/14/22 23:05 82 11/14/22 23:03 67 11/14/22 23:03 137/82 11/14/22 23:00 97 11/14/22 23:00 67 11/14/22 22:55 97 11/14/22 22:55 69 11/14/22 22:52 68 11/14/22 22:52 144/86 H 11/14/22 22:50 97 11/14/22 22:50 71 11/14/22 22:45 97 11/14/22 22:45 71 11/14/22 22:42 73 11/14/22 22:42 146/85 H 11/14/22 22:40 97 11/14/22 22:40 73 11/14/22 22:35 97 11/14/22 22:35 77 11/14/22 22:32 73 11/14/22 22:32 147/86 H 11/14/22 22:30 98 11/14/22 22:30 77 11/14/22 22:25 98 11/14/22 22:25 77 11/14/22 22:22 72 11/14/22 22:22 147/86 H 11/14/22 22:20 97 11/14/22 22:20 73 11/14/22 22:15 98 11/14/22 22:15 79 11/14/22 22:12 71 11/14/22 22:12 146/86 H 11/14/22 22:10 97 11/14/22 22:10 78 11/14/22 22:05 97 11/14/22 22:05 77 11/14/22 22:03 75 11/14/22 22:03 150/86 H 11/14/22 22:00 97 11/14/22 22:00 81 11/14/22 21:55 97 11/14/22 21:55 86 11/14/22 21:53 79 11/14/22 21:53 131/76 11/14/22 21:50 96 11/14/22 21:50 79 11/14/22 21:45 97 11/14/22 21:45 81 11/14/22 21:43 81 11/14/22 21:43 133/72 11/14/22 21:40 96 11/14/22 21:40 81 11/14/22 21:35 95 11/14/22 21:35 79 11/14/22 21:32 76 11/14/22 21:32 140/85 11/14/22 21:30 95 11/14/22 21:30 80 11/14/22 21:25 96 11/14/22 21:25 79 11/14/22 21:23 80 11/14/22 21:23 141/83 H 11/14/22 21:20 96 11/14/22 21:20 79 11/14/22 21:15 96 11/14/22 21:15 78 11/14/22 21:12 78 11/14/22 21:12 141/84 H 11/14/22 21:10 96 11/14/22 21:10 79 11/14/22 21:05 95 11/14/22 21:05 83 11/14/22 21:02 79 11/14/22 21:02 142/86 H 11/14/22 21:00 98 11/14/22 21:00 84 11/14/22 20:55 96 11/14/22 20:55 82 11/14/22 20:52 77 11/14/22 20:52 142/82 H 11/14/22 20:50 95 11/14/22 20:50 81 11/14/22 20:45 95 11/14/22 20:45 82 11/14/22 20:43 78 11/14/22 20:43 131/80 11/14/22 20:40 97 11/14/22 20:40 77 11/14/22 20:35 94 11/14/22 20:35 82 11/14/22 20:30 97 11/14/22 20:30 81 11/14/22 20:25 97 11/14/22 20:25 80 11/14/22 20:22 77 11/14/22 20:22 148/80 H 11/14/22 20:20 96 11/14/22 20:20 80 11/14/22 20:15 96 11/14/22 20:15 78 11/14/22 20:13 81 11/14/22 20:13 152/83 H 11/14/22 20:10 97 11/14/22 20:10 79 11/14/22 20:05 96 11/14/22 20:05 82 11/14/22 20:00 97 11/14/22 20:00 77 11/14/22 19:55 96 11/14/22 19:55 79 11/14/22 19:53 80 11/14/22 19:53 162/96 H 11/14/22 19:50 98 11/14/22 19:50 75 11/14/22 19:45 98 11/14/22 19:45 79 11/14/22 19:43 70 11/14/22 19:43 161/94 H 11/14/22 19:40 98 11/14/22 19:40 72 11/14/22 19:35 97 11/14/22 19:35 74 11/14/22 19:33 71 11/14/22 19:33 144/92 H 11/14/22 19:30 97 11/14/22 19:30 75 11/14/22 19:25 97 11/14/22 19:25 76 11/14/22 19:23 70 11/14/22 19:23 149/93 H 11/14/22 19:20 97 11/14/22 19:20 74 11/14/22 19:15 97 11/14/22 19:15 73 11/14/22 19:13 70 11/14/22 19:13 154/95 H 11/14/22 19:10 97 11/14/22 19:10 82 11/14/22 19:05 96 11/14/22 19:05 73 11/14/22 19:03 72 11/14/22 19:03 147/91 H 11/14/22 19:00 97 11/14/22 19:00 70 11/14/22 18:55 97 11/14/22 18:55 69 11/14/22 18:53 68 11/14/22 18:53 147/86 H 11/14/22 18:50 96 11/14/22 18:50 67 11/14/22 18:45 96 11/14/22 18:45 69 11/14/22 18:43 72 11/14/22 18:43 152/93 H 11/14/22 18:40 98 11/14/22 18:40 69 11/14/22 18:35 98 11/14/22 18:35 74 11/14/22 18:33 67 11/14/22 18:33 148/89 H 11/14/22 18:30 96 11/14/22 18:30 72 11/14/22 18:25 97 11/14/22 18:25 73 <Camelia Zeng DO - Last Filed: 11/15/22 08:36> Co-Signing Physician Notes Resident Physician Supervision Note: I was present with Dr. Montes during the history and exam. I discussed the case with the resident and agree with the findings and plan as documented in the note. Any exceptions or clarifications are listed here: PPD#1, magnesium continues. Labs normal. BPs elevated, will change labetalol to 200mg and continue to monitor. Documented By: Camelia Zeng DO
[2022-11-15 06:41] LABS: Basophils # (auto) 0.06 K/uL (0-0.2); Basophils % (auto) 0.4 %; Eosinophils # (auto) 0.05 K/uL (0-0.50); Eosinophils % (auto) 0.3 %; Hematocrit (blood only) 26.6 % (37.0-47.0); Hemoglobin 8.9 g/dl (12.0-16.0); Immature Granulocytes # (auto) 0.08 K/uL (0.01-0.20); Immature Granulocytes % (auto) 0.5 %; Lymphocytes # (auto) 3.01 K/uL (1.2-3.4); Mean Corpuscular Hemoglobin 28.5 pg (25.0-34.0); Mean Corpuscular Hgb Conc 33.5 g/dL (32.0-36.0); Mean Corpuscular Volume 85.3 fL (80.0-100.0); Mean Platelet Volume 11.5 fL (9.4-12.4); Monocytes # (auto) 0.69 K/uL (0.11-0.59); Monocytes % (auto) 4.6 %; Neutrophils # (auto) 11.18 K/uL (1.40-6.50); Neutrophils % (auto) 74.2 %; Platelet Count 231 K/uL (130-400); RDW Coefficient of Variation 14.7 % (11.5-14.5); RDW Standard Deviation 45.5 fL (36.4-46.3); Red Blood Count 3.12 M/uL (4.20-5.40); White Blood Count 15.07 K/ul (4.8-10.8)
[2022-11-15 06:52] LABS: Alanine Aminotransferase 10 U/L (7-52); Albumin Level 2.7 gm/dl (3.4-5.0); Alkaline Phosphatase 109 U/L (34-104); Anion Gap 5 (3-11); Aspartate Aminotransferase 17 U/L (13-39); BUN Creatinine Ratio 9.6 (10-20); Bilirubin,Total 0.3 mg/dl (0.2-1.0); Blood Urea Nitrogen 5 mg/dl (6-23); Calcium 6.2 mg/dl (8.5-10.1); Carbon Dioxide 26 mmol/L (21-32); Chloride 104 mmol/L (98-107); Creatinine Clr Calc Pharmacy 147.4 ml/min; Est GFR (African American) > 150.0 ml/min; Globulin 2.7 gm/dl (2.5-4.0); Glucose 88 mg/dl (70-99(Fasting)); Magnesium Therapeutic L&D Only 7.6 mg/dL (4.0-8.0); Potassium 3.9 mmol/L (3.5-5.1); Sodium 135 mmol/L (136-145); Total Protein 5.4 gm/dl (6.0-8.3)
[2022-11-15] MEDS: DOCUSATE SODIUM 100 MG CAP PO SCH ×2 (07:42→23:23)
[2022-11-15] MEDS ORDERED: LABETALOL HCL 200 MG TAB PO SCH (09:00)
[2022-11-15] MEDS ORDERED: LABETALOL HCL 100 MG TAB PO SCH (09:00)
[2022-11-15] MEDS: PRENATAL VITAMIN 1 TAB PO SCH (09:19)
[2022-11-15 12:17] LABS: Basophils # (auto) 0.04 K/uL (0-0.2); Basophils % (auto) 0.3 %; Eosinophils # (auto) 0.04 K/uL (0-0.50); Eosinophils % (auto) 0.3 %; Hemoglobin 8.4 g/dl (12.0-16.0); Immature Granulocytes # (auto) 0.07 K/uL (0.01-0.20); Immature Granulocytes % (auto) 0.4 %; Lymphocytes # (auto) 2.74 K/uL (1.2-3.4); Lymphocytes % (auto) 17.6 %; Mean Corpuscular Hemoglobin 28.7 pg (25.0-34.0); Mean Corpuscular Hgb Conc 33.6 g/dL (32.0-36.0); Mean Corpuscular Volume 85.3 fL (80.0-100.0); Mean Platelet Volume 11.5 fL (9.4-12.4); Monocytes # (auto) 0.63 K/uL (0.11-0.59); Neutrophils # (auto) 12.06 K/uL (1.40-6.50); Neutrophils % (auto) 77.4 %; Platelet Count 222 K/uL (130-400); RDW Coefficient of Variation 15.1 % (11.5-14.5); RDW Standard Deviation 47.2 fL (36.4-46.3); Red Blood Count 2.93 M/uL (4.20-5.40); White Blood Count 15.58 K/ul (4.8-10.8)
[2022-11-15 12:29] LABS: Albumin Level 2.7 gm/dl (3.4-5.0); BUN Creatinine Ratio 11.3 (10-20); Bilirubin,Total 0.3 mg/dl (0.2-1.0); Calcium 6.1 mg/dl (8.5-10.1); Creatinine Clr Calc Pharmacy 123.6 ml/min; Est GFR (African American) 142.2 ml/min; Est GFR (Non-African American) 122.7 ml/min; Globulin 2.6 gm/dl (2.5-4.0); Magnesium Therapeutic L&D Only 7.4 mg/dL (4.0-8.0); Potassium 4.1 mmol/L (3.5-5.1); Total Protein 5.3 gm/dl (6.0-8.3)
[2022-11-15] MEDS: LABETALOL HCL 200 MG TAB PO SCH ×2 (18:27→23:37)
[2022-11-15] MEDS ORDERED: bisacodyL 5 MG TABEC PO SCH (20:00)
[2022-11-16] MEDS: LACTATED RINGER'S 1,000 ML IV SCH (00:19)
--- NOTE | 2022-11-16 05:51 | Obstetrical Progress Note ---
Date of Service <Carlene Montes DO - Last Filed: 11/16/22 07:03> November 16, 2022 Assessment & Plan <Carlene Montes DO - Last Filed: 11/16/22 07:03> (1) Preeclampsia complicating hypertension: - Continue labetalol 200mg q8; will plan to discharge her on this dose with blood pressure check in the office next week - Plan to monitor blood pressures off magnesium for at least 24 hours (1330 this afternoon) - if blood pressures are well controlled with morning/afternoon could consider discharge (2) Status post vaginal delivery: - Palomino is out, continue OOB, advance diet as tolerated <Isaura Richardson MD - Last Filed: 11/16/22 07:21> (1) Preeclampsia complicating hypertension: (2) Status post vaginal delivery: Subjective <Carlene Montes DO - Last Filed: 11/16/22 07:03> Lissa is a 26 y/o female who is now PPD # 2 following vaginal delivery at 39 weeks. Reports feeling well overall this morning, significantly better since she was taken off the magnesium. Mild abdominal cramping, pain well managed on analgesics. Voiding. Tolerating full diet. Some persistent lochia with some improvement this morning. Breast feeding. Denies headache ache, vision changes and abdominal pain. Review of Systems Denies fever, chills, sweats Denies shortness of breath, difficulty breathing, chest pain, palpitations, chest pressure. Denies breast pain. Denies dysuria. Denies headache or changes in vision. Physical Exam <Carlene Montes DO - Last Filed: 11/16/22 07:03> General: Alert, oriented. No acute distress. Cardiac: Regular rate and rhythm, no murmurs/rubs/gallops. Respiratory: Clear to auscultation bilaterally a/p, no wheezes/rales/rhonchi. No increased work of breathing. Symmetrical chest rise. No respiratory distress. Abdomen: Soft, nontender, nondistended. Bowel sounds present. Uterus: Uterine fundus firm, palpable 2 cm below umbilicus. Lower Extremities: No lower extremity edema or swelling. No deep calf pain. José Miguel's negative bilaterally. Results & Data ([facility]) <Carlene Montes DO - Last Filed: 11/16/22 07:03> Vital Signs (Past 12 Hours) Vital Signs Temp Pulse Resp BP Pulse Ox O2 Del Method 11/15/22 23:14 36.7 C 80 18 128/73 95 Room Air 11/15/22 20:17 36.7 C 86 18 128/76 93 Room Air <Isaura Richardson MD - Last Filed: 11/16/22 07:21> Co-Signing Physician Notes Resident Physician Supervision Note: I interviewed and examined the patient. Discussed with Dr. Montes and agree with findings and plan as documented in the note. Any exceptions or clarifications are listed here: PP2 s/p c/b pre-eclampsia w/ SF requiring mag. Mag stopped yesterday around 130pm and maintained on labetalol 200mg q8 currently. Denies s/s PET, meeting all pp milestones. VSS, BP 149 thsi AM but is due for labetalol dose. Will recheck 1-2 hrs after dose. Exam benign and wnl. Will continue to monitor BPs today, pt desires to go home so if BPs stable I think ok to do so later this afternoon/evening and BP check early next week. Discharge instructions reviewed, labetalol rx sent Documented By: Isaura Richardson MD Resident Activity Tracking <Carlene Montes DO - Last Filed: 11/16/22 07:03> Resident Involvement: Resident Care Provided Care Provided: OB Delivery (post )
[2022-11-16] MEDS: LABETALOL HCL 200 MG TAB PO SCH ×2 (06:27→15:12)
[2022-11-16 07:03] LABS: Hematocrit (blood only) 24.4 % (37.0-47.0); Hemoglobin 7.8 g/dl (12.0-16.0); Mean Corpuscular Hemoglobin 28.1 pg (25.0-34.0); Mean Corpuscular Volume 87.8 fL (80.0-100.0); Mean Platelet Volume 11.3 fL (9.4-12.4); Platelet Count 224 K/uL (130-400); RDW Standard Deviation 48.7 fL (36.4-46.3); Red Blood Count 2.78 M/uL (4.20-5.40); White Blood Count 12.29 K/ul (4.8-10.8)
[2022-11-16 07:19] LABS: Albumin Level 2.7 gm/dl (3.4-5.0); Bilirubin,Total 0.3 mg/dl (0.2-1.0); Calcium 7.2 mg/dl (8.5-10.1); Creatinine Clr Calc Pharmacy 111.1 ml/min; Est GFR (African American) 137.3 ml/min; Est GFR (Non-African American) 118.5 ml/min; Globulin 2.7 gm/dl (2.5-4.0); Total Protein 5.4 gm/dl (6.0-8.3)
[2022-11-16] MEDS: DOCUSATE SODIUM 100 MG CAP PO SCH (07:56)
[2022-11-16] MEDS: PRENATAL VITAMIN 1 TAB PO SCH (07:56)
== END 2022-11-16 19:24 | disposition home or self-care (01) | DRG 807 ==
LOC: OPB 14:19 → 4S1 14:20 → 4E2 11-15 15:23